=== PATIENT | male | born 1990 | race American Indian/Alaskan Native ===

== ENCOUNTER 2018-10-24 14:15 | Emergency (ER) | payer SELFPAY ==
--- NOTE | 2018-10-24 14:27 | Emergency Department Report ---
Blank Doc - Documentation Documentation: 28 y o male with pmh of HIV has not been on his meds x 2 month cc of rectal pain with pain with defecating states feels like a sore, burning, allso cc of burning to his penis denies dysuria, n,v, abd pain. [facility] eval
[2018-10-24 14:28] VITALS: BP 123/68
[2018-10-24 15:25] LABS: Basophils % (Auto) 0.7 % (0.0-1.8); Eosinophils % (Auto) 0.3 % (0.0-4.3); Hematocrit 39.1 % (35.5-45.6); Hemoglobin 13.4 gm/dl (11.8-15.2); Lymphocytes # (Auto) 1.4 K/mm3 (1.2-5.4); Lymphocytes % (Auto) 41.1 % (13.4-35.0); Mean Corpuscular HGB Conc 34 % (32-34); Mean Corpuscular Volume 90 fl (84-94); Monocytes # (Auto) 0.4 K/mm3 (0.0-0.8); Monocytes % (Auto) 12.1 % (0.0-7.3); Platelet Count 130 K/mm3 (140-440); Red Blood Count 4.35 M/mm3 (3.65-5.03)
[2018-10-24 15:43] LABS: Bilirubin,Urine NEG (Negative); Blood,Urine SM (Negative); Color,Urine Yellow (Yellow); Mucus,Urine 2+ /HPF; Protein,Urine <15 mg/dL mg/dL (Negative)
[2018-10-24 15:51] LABS: BUN/Creatinine Ratio 9; Blood Urea Nitrogen 7 mg/dL (9-20); Calcium 8.9 mg/dL (8.4-10.2); Hemolysis Index 6
--- NOTE | 2018-10-24 15:55 | XRay Report ---
PROCEDURE: XR ABDOMEN 2V TECHNIQUE: KUB and erect abdomen HISTORY: Abd pain COMPARISONS: None FINDINGS: Gas and stool colon. Single left upper abdomen dilated loop of small bowel measuring up to 3.6 cm. Re mainder of the small bowel nondilated. No air-fluid level No free air Vascular calcification pelvis No acute bony abnormality IMPRESSION: Single dilated loop of small bowel. Gas in the colon. Differential includes ileus or partial small bonnie wel obstruction. If symptoms persist, follow-up suggested No free air. This document is electronically signed by Tommy Black MD., October 24 2018 03:53:24 PM ET
--- NOTE | 2018-10-24 16:01 | Emergency Department Report ---
HPI - General Chief Complaint: Abdominal Pain Time Seen by Provider: 10/24/18 14:25 - HPI HPI: 28-year-old -Citizen Of [place] male presents to the emergency department with a complaint of some rectal irritation that include some mild discomfort and a burning sensation that occurs only when the patient tries to have a bowel movement. He also says that his he might have some constipation as his stool is often very hard. He has not taken anything for his symptoms prior to presentation. The patient has a history of HIV but is not currently on any medication as he says he moved to the area about 2 months ago and does not have any primary care or infectious disease follow-up. He denies any fever. He does say that there is some occasional rectal bleeding when he is wiping his rectum. ED Past Medical Hx - Past Medical History Previous Medical History?: No - Surgical History Past Surgical History?: No - Social History Smoking Status: Current Every Day Smoker Substance Use Type: Alcohol, Marijuana - Medications Home Medications: Home Medications Medication Instructions Recorded Confirmed Last Taken Type Clindamycin [Clindamycin CAP] 300 mg PO Q8H #21 cap 10/24/18 Unknown Rx Docusate Sodium [Colace] 100 mg PO BID PRN #20 capsule 10/24/18 Unknown Rx Hydrocort/Pramoxine [Proctofoam-Hc] 1 applicatio [place] TID PRN #1 can 10/24/18 Unknown Rx ED Review of Systems ROS: Stated complaint: STOMACH PAIN Other details as noted in HPI Comment: All other systems reviewed and negative Constitutional: denies: chills, fever Eyes: denies: eye pain, vision change ENT: denies: ear pain, throat pain Respiratory: denies: cough, shortness of breath Cardiovascular: denies: chest pain, palpitations Gastrointestinal: other (rectal pain with bowel movements). denies: abdominal pain, vomiting Genitourinary: denies: dysuria, discharge Musculoskeletal: denies: back pain, arthralgia Skin: denies: rash, lesions Neurological: denies: headache, weakness Physical Exam - Physical Exam Vital Signs: Vital Signs 10/24/18 14:25 Temperature 98 F Pulse Rate 87 Respiratory 18 Rate Blood Pressure 123/68 O2 Sat by Pulse 100 Oximetry Physical Exam: GENERAL: The patient is well-developed well-nourished. HENT: Normocephalic. Atraumatic. Patient has moist mucous membranes. EYES: Extraocular motions are intact. NECK: Supple. Trachea is midline. CHEST/LUNGS: Clear to auscultation. There is no respiratory distress noted. HEART/CARDIOVASCULAR: Regular. There is no tachycardia. There is no murmur. ABDOMEN: Abdomen is soft, nontender. Patient has normal bowel sounds. There is no abdominal distention. SKIN: Skin is warm and dry. NEURO: The patient is awake, alert, and oriented. The patient is cooperative. The patient has no focal neurologic deficits. The patient has normal speech. MUSCULOSKELETAL: There is no tenderness or deformity. There is no limitation range of motion. There is no evidence of acute injury. RECTAL: There is some firmness and/or induration around the rectum, worse on the 3:00 physician/side. There is a hemorrhoid seen at the end of o'clock position that is firm and slightly tender to palpation but not thrombosed. There is no perirectal bleeding or discharge seen. ED Course Vital Signs 10/24/18 14:25 Temperature 98 F Pulse Rate 87 Respiratory 18 Rate Blood Pressure 123/68 O2 Sat by Pulse 100 Oximetry ED Medical Decision Making - Lab Data Result diagrams: 10/24/18 14:55 10/24/18 14:55 - Medical Decision Making This HIV positive male presents with some burning and itching to the rectum that occurs during and just after a bowel movement. The patient denies any rectal pain in between bowel movements or when he is just going about his normal daily routine. On examination there is some firmness or induration to the 3:00 side and there is some lesion based on the skin at the 12 o'clock position that appears consistent with a hemorrhoid. The differential could include early perirectal abscess formation. However, like previously mentioned, the patient has no pain when he is not having a bowel movement and it was not significant and tender to palpation. He did not have any leukocytosis on labs. His vitals were stable including being afebrile. For these reasons I did not feel that it was necessary to get any CT imaging at this time. The patient did say that he was having some constipation which also appears to fit with him having a hemorrhoid. To be cautious, and given his untreated HIV status, the patient will be treated with antibiotics on top of the hemorrhoid cream. He was also given some Colace to soften his stools. He was given some referrals for primary care and infectious disease. He will return to the ER with any worsening of his symptoms or any acute distress. - Differential Diagnosis hemorrhoid, perirectal abscess, HPV Critical Care Time: No Critical care attestation.: If time is entered above; I have spent that time in minutes in the direct care of this critically ill patient, excluding procedure time. ED Disposition Clinical Impression: Rectal pain, History of HIV infection Hemorrhoids Qualifiers: Hemorrhoid type: unspecified Qualified Code(s): K64.9 - Unspecified hemorrhoids Disposition: TO HOME OR SELFCARE Is pt being admited?: No Condition: Stable Instructions: Hemorrhoids (ED), Rectal Bleeding (ED) Additional Instructions: I am giving you multiple different referrals for outpatient follow-up. I have given you two different names for local primary care physicians and/or clinics. I am giving you a referral for Dr. Cunha, a local infectious disease physician, to follow up regarding your HIV. I am also giving you a referral for Dr. Ac, a local burner tender, to follow up regarding your intermittent rectal pains and bleeding. Return to the emergency Department with any worsening of your symptoms or any acute distress. Prescriptions: Clindamycin [Clindamycin CAP] 300 mg PO Q8H #21 cap Docusate Sodium [Colace] 100 mg PO BID PRN #20 capsule PRN Reason: Constipation Hydrocort/Pramoxine [Proctofoam-Hc] 1 applicatio [place] TID PRN #1 can PRN Reason: Hemorrhoids Referrals: HARIS CUNHA MD [Staff Physician] - 3-5 Days SADIA KUHN MD [Staff Physician] - 3-5 Days [facility] [Outside] - 3-5 Days RUSSEL AC MD [Staff Physician] - 3-5 Days Time of Disposition: 16:05
== END 2018-10-24 16:13 | disposition home or self-care (01) ==
LOC: ED 14:15
DX: K64.9 Unspecified hemorrhoids (principal); F12.10 Cannabis abuse, uncomplicated; F17.200 Nicotine dependence, unspecified, uncomplicated
CPT/HCPCS: 36415; 74019; 80048; 81001; 85025; 87086

== ENCOUNTER 2018-11-13 05:25 | Emergency (ER) | payer BC ==
[2018-11-13 07:36] LABS: Basophils % (Auto) 0.5 % (0.0-1.8); Eosinophils % (Auto) 0.6 % (0.0-4.3); Hematocrit 37.4 % (35.5-45.6); Hemoglobin 12.7 gm/dl (11.8-15.2); Lymphocytes # (Auto) 1.2 K/mm3 (1.2-5.4); Lymphocytes % (Auto) 34.8 % (13.4-35.0); Mean Corpuscular HGB Conc 34 % (32-34); Mean Corpuscular Volume 90 fl (84-94); Monocytes # (Auto) 0.4 K/mm3 (0.0-0.8); Monocytes % (Auto) 12.6 % (0.0-7.3); Platelet Count 160 K/mm3 (140-440); Red Blood Count 4.16 M/mm3 (3.65-5.03); Red Cell Distribution Width 13.9 % (13.2-15.2)
[2018-11-13 07:52] LABS: BUN/Creatinine Ratio 11; Blood Urea Nitrogen 9 mg/dL (9-20); Calcium 8.9 mg/dL (8.4-10.2); Hemolysis Index 2
--- NOTE | 2018-11-13 09:23 | Emergency Department Report ---
ED General Adult HPI - General Chief complaint: GI Bleed Stated complaint: RECTAL PAIN Time Seen by Provider: 11/13/18 08:44 Source: patient Mode of arrival: Ambulatory Limitations: No Limitations - History of Present Illness Initial comments: Patient is a 28-year-old -[place] male who is presenting with rectal pain for the past 3 weeks. Patient states that he has difficulty having bowel movements secondary to pain and also has problems wiping because of the rectal pain. Patient states when he wipes he does see blood on toilet paper. He is denying any testicular pain abdominal pain nausea vomiting fevers or chills at this time. Patient states the pain is 9 out of 10 in severity. He denies receptive anal intercourse. - Related Data Previous Rx's Medication Instructions Recorded Last Taken Type Clindamycin [Clindamycin CAP] 300 mg PO Q8H #21 cap 10/24/18 Unknown Rx Docusate Sodium [Colace] 100 mg PO BID PRN #20 capsule 10/24/18 Unknown Rx Hydrocort/Pramoxine [Proctofoam-Hc] 1 applicatio [place] TID PRN #1 can 10/24/18 Unknown Rx Acyclovir [Zovirax Tab] 400 mg PO Q8H #21 tab 11/13/18 Unknown Rx Docusate Sodium [Colace] 100 mg PO BID #20 capsule 11/13/18 Unknown Rx Hydrocortisone [Anusol-Hc 2.5% TOP 1 applic RC BID #30 cream..g. 11/13/18 Unknown Rx CREAM] traMADol [Ultram] 50 mg PO Q6HR PRN #12 tablet 11/13/18 Unknown Rx Allergies Allergy/AdvReac Type Severity Reaction Status Date / Time sulfamethoxazole Allergy Anaphylaxis Verified 10/24/18 14:18 [From Bactrim] trimethoprim [From Bactrim] Allergy Anaphylaxis Verified 10/24/18 14:18 ED Review of Systems ROS: Stated complaint: RECTAL PAIN Other details as noted in HPI Comment: All other systems reviewed and negative ED Past Medical Hx - Past Medical History Previous Medical History?: No - Surgical History Past Surgical History?: No - Social History Smoking Status: Current Every Day Smoker Substance Use Type: None - Medications Home Medications: Home Medications Medication Instructions Recorded Confirmed Last Taken Type Clindamycin [Clindamycin CAP] 300 mg PO Q8H #21 cap 10/24/18 Unknown Rx Docusate Sodium [Colace] 100 mg PO BID PRN #20 capsule 10/24/18 Unknown Rx Hydrocort/Pramoxine [Proctofoam-Hc] 1 applicatio [place] TID PRN #1 can 10/24/18 Unknown Rx Acyclovir [Zovirax Tab] 400 mg PO Q8H #21 tab 11/13/18 Unknown Rx Docusate Sodium [Colace] 100 mg PO BID #20 capsule 11/13/18 Unknown Rx Hydrocortisone [Anusol-Hc 2.5% TOP 1 applic RC BID #30 cream..g. 11/13/18 Unknown Rx CREAM] traMADol [Ultram] 50 mg PO Q6HR PRN #12 tablet 11/13/18 Unknown Rx ED Physical Exam - General Limitations: No Limitations General appearance: alert, in no apparent distress - Head Head exam: Present: atraumatic, normocephalic - Eye Eye exam: Present: normal appearance - ENT ENT exam: Present: mucous membranes moist - Neck Neck exam: Present: normal inspection - Respiratory Respiratory exam: Present: normal lung sounds bilaterally. Absent: respiratory distress - Cardiovascular Cardiovascular Exam: Present: regular rate, normal rhythm. Absent: systolic murmur, diastolic murmur, rubs, gallop - GI/Abdominal GI/Abdominal exam: Present: soft, normal bowel sounds - Rectal Rectal exam: Present: mass (patient with a masslike lesion most consistent with a hemorrhoid that is nonthrombosed. Adjacent to this area is a group of fleshy lesions which have ulceration present. Patient also has a flat ulcerated lesion on the other side of the anus and not associated with live fleshy-like lesion. There is some mild erythema present. Over these areas are painful.). Absent: deferred, normal inspection - Extremities Exam Extremities exam: Present: normal inspection - Back Exam Back exam: Present: normal inspection - Neurological Exam Neurological exam: Present: alert, oriented X3 - Psychiatric Psychiatric exam: Present: normal affect, normal mood - Skin Skin exam: Present: warm, dry, intact, normal color. Absent: rash ED Course Vital Signs 11/13/18 05:38 Temperature 98.2 F Pulse Rate 97 H Respiratory 18 Rate Blood Pressure 123/79 O2 Sat by Pulse 100 Oximetry ED Medical Decision Making - Lab Data Result diagrams: 11/13/18 05:54 11/13/18 05:54 - Medical Decision Making On the patient's differential diagnosis the patient's lesions could be hemorrhoid with a group of active herpes or small ulceration of anal warts. Patient will have a herpes culture performed this medicine to the lab. Patient to follow with medical records for results. Patient started on acyclovir. Patient also be given Ultram for pain and Colace. Patient started on Anusol for local inflammation. Patient discharged home with follow-up with gastroenterology. Critical care attestation.: If time is entered above; I have spent that time in minutes in the direct care o f this critically ill patient, excluding procedure time. ED Disposition Clinical Impression: Anal lesion Disposition: DC-01 TO HOME OR SELFCARE Is pt being admited?: No Does the pt Need Aspirin: No Condition: Stable Additional Instructions: Please follow up with medical records to obtain a herpes test. Also please follow-up with the [facility] if symptoms are not improving. Referrals: [facility] [Provider Group] - 3-5 Days Time of Disposition: 09:25
[2018-11-13 09:55] VITALS: BP 116/71
== END 2018-11-13 09:45 | disposition home or self-care (01) ==
LOC: ED 05:25
DX: K62.9 Disease of anus and rectum, unspecified (principal); F17.200 Nicotine dependence, unspecified, uncomplicated; Z79.899 Other long term (current) drug therapy; Z88.1 Allergy status to other antibiotic agents; Z88.2 Allergy status to sulfonamides
CPT/HCPCS: 36415; 80048; 85025; 87255; 99283

== ENCOUNTER 2020-11-18 05:07 | Emergency (ER) | payer SELFPAY ==
[2020-11-18 05:11] VITALS: BP 128/64
[2020-11-18] MEDS ORDERED: MORPHINE 4 MG/1 ML INJ IM ONE (06:26)
--- NOTE | 2020-11-18 06:29 | Emergency Department Report ---
HPI - General Chief Complaint: Extremity Injury, Upper Time Seen by Provider: 11/18/20 06:13 - HPI HPI: This is a 30-year-old -[place] male presents to the emergency department with a complaint of pain through his entire left arm and up into the neck and posterior left shoulder that has been going on for the past 2 weeks. He says that the pain is 9 out of 10 in intensity. He has tried some ibuprofen with some transient relief. No rash or skin color change. He feels that the arm is slightly swollen. The pain worsens with movement. He has a past medical history of HIV. No recent travel or sick contacts at home. Patient denies any new workout regiment, obvious trauma, injury, or known inciting event. ED Past Medical Hx - Past Medical History Hx HIV: Yes - Surgical History Past Surgical History?: No - Social History Smoking Status: Current Every Day Smoker Substance Use Type: Alcohol, Marijuana - Medications Home Medications: Home Medications Medication Instructions Recorded Confirmed Last Taken Type No Known Home Medications [No 11/13/18 11/13/18 Unknown History Reported Home Medications] ED Review of Systems ROS: Stated complaint: LT SIDE BODY SWELLING Other details as noted in HPI Comment: All other systems reviewed and negative Constitutional: denies: chills, fever Eyes: denies: eye pain, vision change ENT: denies: ear pain, throat pain Respiratory: denies: cough, shortness of breath Cardiovascular: denies: chest pain, palpitations Gastrointestinal: denies: abdominal pain, vomiting Genitourinary: denies: dysuria, discharge Musculoskeletal: arthralgia, myalgia Skin: denies: rash, lesions Neurological: paresthesias. denies: headache, weakness Physical Exam - Physical Exam Vital Signs: Vital Signs 11/18/20 05:09 Temperature 98.6 F Pulse Rate 95 H Respiratory 18 Rate Blood Pressure 128/64 O2 Sat by Pulse 99 Oximetry Physical Exam: GENERAL: The patient is well-developed well-nourished. HENT: Normocephalic. Atraumatic. Patient has moist mucous membranes. EYES: Extraocular motions are intact. NECK: Supple. Trachea is midline. CHEST/LUNGS: Clear to auscultation. There is no respiratory distress noted. HEART/CARDIOVASCULAR: Regular. There is no tachycardia. There is no murmur. ABDOMEN: Abdomen is soft, nontender. Patient has normal bowel sounds. There is no abdominal distention. SKIN: Skin is warm and dry. NEURO: The patient is awake, alert, and oriented. The patient is cooperative. The patient has no focal neurologic deficits. Normal speech. MUSCULOSKELETAL: There is some tenderness to palpation along the left upper arm and superior posterior left shoulder along the trapezius muscle. There is no limitation range of motion. Radial pulse +2/4 and capillary refill less than 2 seconds to the affected left upper extremity. ED Course Vital Signs 11/18/20 05:09 Temperature 98.6 F Pulse Rate 95 H Respiratory 18 Rate Blood Pressure 128/64 O2 Sat by Pulse 99 Oximetry ED Medical Decision Making - Medical Decision Making This patient presented with the complaint of atraumatic left arm pain going up his entire arm and into the neck and shoulder. On examination the patient is neurovascularly intact with good sensation, good distal pulses and capillary refill. There is no restriction to range of motion. While there was no appreciable edema, the patient says that he feels that the left arm is swollen and compared to the right. As I was doing the history and physical, the patient continuously is asking for stronger narcotic pain medication, specifically morphine. He is asking for morphine both in the hospital and a prescription for it. I told the patient that I would not be prescribing him oral morphine, but as the patient says that he has 9 out of 10 pain, that I will be happy to treat his pain in the emergency department with something stronger than Tylenol or NSAIDs as long as he can get someone to come and get him since he drove. Then, taking the patient for his word that he has 9 out of 10 pain, I ordered a work- up to include some blood work and x-rays. I was going to obtain a metabolic panel to make sure that there are no electrolyte abnormalities that could have caused his paresthesias, and a D-dimer level to try and rule out an upper extremity DVT, as we do not have upper extremity Doppler ultrasound at this time. Even though I explained to the patient that a work-up is pending and that his pain will be treated, the patient eloped from the emergency department as soon as I left the room. Critical Care Time: No Critical care attestation.: If time is entered above; I have spent that time in minutes in the direct care of this critically ill patient, excluding procedure time. ED Disposition Clinical Impression: Left arm pain, Paresthesias Disposition: ELOPED Is pt being admited?: No Time of Disposition: 06:50
== END 2020-11-18 06:42 | disposition left against medical advice (07) ==
LOC: ED 05:07
DX: M79.602 Pain in left arm (principal); R20.2 Paresthesia of skin; F17.200 Nicotine dependence, unspecified, uncomplicated; F12.90 Cannabis use, unspecified, uncomplicated; Z72.89 Other problems related to lifestyle; Z79.899 Other long term (current) drug therapy
CPT/HCPCS: 99281